=== PATIENT | male | born 1990 | race Two or more races ===

== ENCOUNTER 2021-11-22 22:45 | Emergency (ER) | payer MEDICAID, OTHER ==
[~2021-11-22] VITALS: Ht 167.6 cm; Wt 83.9 kg
[2021-11-22 22:48] VITALS: BP 129/84
== END 2021-11-23 03:40 | disposition left against medical advice (07) ==
LOC: ER 22:45
DX: R51.9 Headache, unspecified (principal); Z53.21 Procedure and treatment not carried out due to patient leaving prior to being seen by health care provider; Y08.89XA Assault by other specified means, initial encounter; Y93.89 Activity, other specified; Y92.89 Other specified places as the place of occurrence of the external cause; Y99.8 Other external cause status